=== PATIENT | female | born 1950 | race Caucasian/White ===

== ENCOUNTER → 2017-12-17 08:07 | Outpatient (CLI) | payer MEDICARE, OTHER, SELFPAY ==
[2017-12-17 10:56] LABS: Vitamin D,25 Hydroxy 37.4 ng/mL (29.95-100.01)
[2017-12-17 10:58] LABS: Anion Gap 6 (5-15); BUN 18 mg/dL (7-18); BUN/Creat Ratio 17.6 RATIO (10-20); Calcium,Total 8.9 mg/dL (8.5-10.1); Chloride 105 mmol/L (98-107); Cholesterol 169 mg/dL (200); Creatinine, Serum 1.02 mg/dL (0.55-1.02); EST Glomerular Filtration Rate 58 mL/min (>60); Est Glom Filt Rate - Afr Amer 70 mL/min (>60); Glucose 85 mg/dL (74-106); High Density Lipoprotein 42 mg/dL; Potassium 3.9 mmol/L (3.5-5.1); Sodium Level 139 mmol/L (136-145); Triglycerides 118 mg/dL; Very Low Density Lipoprotein 24 mg/dL (5-40)
== END ==
PROVIDERS: Family Provider Family Medicine; PCP Family Medicine; Visit Provider Family Medicine
DX: Z00.00 Encounter for general adult medical examination without abnormal findings (principal); E55.9 Vitamin D deficiency, unspecified; E78.5 Hyperlipidemia, unspecified
CPT/HCPCS: 36415; 80048; 80061; 82306

== ENCOUNTER → 2017-12-21 12:41 | Outpatient (CLI) | payer MEDICARE, OTHER, SELFPAY ==
--- NOTE | 2017-12-21 12:48 | BD_ITS ---
STUDY: DUAL ENERGY X-RAY ABSORPTIOMETRY / DXA REASON FOR EXAM: Female, 67 years old. Postmenopausal female. Patient on calcium and multivitamins. Family history of osteoporosis. TECHNIQUE: Bone Mineral Density (BMD) measurements of lumbar spine and bilateral hips were obtained. COMPARISON: None. FINDINGS: Lumbar Spine (L1-L4): g/cm2 (1.121) / T-score (-0.7) / Z-score (0.9) Findings are suggestive of normal bone density with a low fracture risk. Left Femur Total: g/cm2 (1.060) / T-score (0.4) / Z-score (1.6) Left Femoral Neck: g/cm2 (0.980) / T-score (-0.4) / Z-score (1.0) Right Femur Total: g/cm2 (1.039) / T-score (0.2) / Z-score (1.4) Right Femoral Neck: g/cm2 (0.944) / T-score (-0.7) / Z-score (0.8) BD/Dexa Bone Density Study IMPRESSION: The patient is considered normal as outlined below according to World Ronald Organization (WHO) criteria with a low fracture risk. Reference Information: The T-score is the number of standard deviations above or below the standard which is normal for young adults at their peak bone mineral density. The World Health Organization (WHO) interprets the T-scores as follows: Above -1 Normal bone density Between -1 and -2.5 Osteopenia Equal to / or below -2.5 Osteoporosis As a practical clinical guideline, osteopenia may be graded as follows: Mild -1 through -1.5 Moderate -1.6 through -2.0 Severe -2.1 through -2.4 The Z-score is the number of standard deviations above or below age-matched controls. A Z-score of less than -1.5 would be considered abnormal. References: 1. NIH Osteoporosis and Related Bone Diseases http://www.osteo.org 2. International Society for Clinical Densitometry http://www.iscd.org 3. National Osteoporosis Foundation http://www.nof.org Electronically Signed: Supa Ibarra DO at 8:37 EDT Tel [phone], Service support ,
== END ==
PROVIDERS: Family Provider Family Medicine; PCP Family Medicine; Visit Provider Family Medicine
DX: Z00.00 Encounter for general adult medical examination without abnormal findings (principal)
CPT/HCPCS: 77080

== ENCOUNTER → 2018-05-18 10:39 | Outpatient (CLI) | payer MEDICARE, OTHER, SELFPAY ==
[2018-05-18 12:30] LABS: Anion Gap 6 (5-15); BUN 17 mg/dL (7-18); BUN/Creat Ratio 14.9 RATIO (10-20); Calcium,Total 9.1 mg/dL (8.5-10.1); Chloride 100 mmol/L (98-107); Creatinine, Serum 1.14 mg/dL (0.55-1.02); EST Glomerular Filtration Rate 51 mL/min (>60); Est Glom Filt Rate - Afr Amer 61 mL/min (>60); Glucose 104 mg/dL (74-106); Potassium 3.8 mmol/L (3.5-5.1); Sodium Level 135 mmol/L (136-145)
== END ==
PROVIDERS: Family Provider Family Medicine; PCP Family Medicine; Visit Provider Family Medicine
DX: I10 Essential (primary) hypertension (principal)
CPT/HCPCS: 36415; 80048

== ENCOUNTER → 2019-01-24 09:49 | Outpatient (CLI) | payer MEDICARE, OTHER, SELFPAY ==
[2019-01-24 12:41] LABS: Anion Gap 7 (5-15); BUN 29 mg/dL (7-18); Calcium,Total 9.3 mg/dL (8.5-10.1); Chloride 104 mmol/L (98-107); Cholesterol 177 mg/dL (200); Creatinine, Serum 1.26 mg/dL (0.55-1.02); EST Glomerular Filtration Rate 45 mL/min (>60); Est Glom Filt Rate - Afr Amer 55 mL/min (>60); Glucose 92 mg/dL (74-106); High Density Lipoprotein 48 mg/dL; Potassium 4.3 mmol/L (3.5-5.1); Sodium Level 138 mmol/L (136-145); Triglycerides 98 mg/dL; Very Low Density Lipoprotein 20 mg/dL (5-40)
== END ==
PROVIDERS: Family Provider Family Medicine; PCP Family Medicine; Referring Provider Family Medicine; Visit Provider Family Medicine
DX: I10 Essential (primary) hypertension (principal)
CPT/HCPCS: 36415; 80048; 80061

== ENCOUNTER 2019-02-13 08:42 | Day surgery (SDC) | payer MEDICARE, OTHER, SELFPAY ==
[2019-01-30 13:27] VITALS: BMI 31.9
--- NOTE | 2019-01-31 11:21 | HP_ITS ---
Intake Vital Signs 01/30/19 Height 5 ft 4 in 01/30/19 Weight: 186 lb 01/30/19 Body Mass Index (BMI) 31.9 01/30/19 Blood Pressure 124/79 H 01/30/19 Blood Pressure Location Rt brachial 01/30/19 Blood Pressure Position Sitting 01/30/19 Respiratory Rate 18 Intake Visit Reasons: Dysphagia & Garcia Upper Scope Suggestion Clerk Required: No Is patient in pain?: No Allergies No Known Allergies Allergy (Unverified 01/30/19 13:27) Medications aspirin 81 mg tablet,delayed release 81 mg PO DAILY 01/30/19 [History Confirmed 01/30/19] bupropion HCl SR 150 mg tablet,12 hr sustained-release 150 mg PO BID 01/30/19 [History Confirmed 01/30/19] calcium acetate 667 mg capsule 667 mg PO TID cap 01/30/19 [History Confirmed 01/30/19] citalopram 40 mg tablet 20 mg PO DAILY 01/30/19 [History Confirmed 01/30/19] enalapril 5 mg-hydrochlorothiazide 12.5 mg tablet 1 tab PO DAILY 01/30/19 [History Confirmed 01/30/19] fluticasone propionate 50 mcg/actuation nasal spray,suspension 1 spray INTRANASAL DAILY 01/30/19 [History Confirmed 01/30/19] magnesium oxide 500 mg capsule 500 mg PO BID cap 01/30/19 [History Confirmed 01/30/19] meclizine 25 mg tablet 25 mg PO DAILY PRN 01/30/19 [History Confirmed 01/30/19] ropinirole 0.5 mg tablet 0.5 mg PO QHS 01/30/19 [History Confirmed 01/30/19] simvastatin 10 mg tablet 10 mg PO QHS 01/30/19 [History Confirmed 01/30/19] PFS Medical History Depression (Acute) GERD (gastroesophageal reflux disease) (Acute) High cholesterol (Acute) Restless leg (Acute) HTN (hypertension) (Chronic) Surgical History S/P tubal ligation (Acute) Family History Sister Colon cancer Father Colon cancer Mother Hypertension Social History Smoking Status: Never smoker alcohol intake: never HPI HPI HPI: XENIA CHAU, is a 68 F who presents to the office today for HPI HPI Surgical H&P: Yes HPI: XENIA CHAU, is a 68 F who presents to the office today for evaluation for endoscopy. Patient had an EGD done in 2002 she has a history of Garcia's esophagus. She is noticed that over the last 2 weeks she has had some severe heartburn with water brash symptoms. It seemed to hurt all the time. She was recently changed to omeprazole 40 mg 2 times a day in the morning and Zantac 150 mg at nighttime. She is slowly starting to notice her symptoms get better. Her last colonoscopy was in 2007 and she has a history of polyps with that she had a tubular adenoma removed from the hepatic flexure. She has not had any further colonoscopies since then. She has not noticed any change in her bowel habits she has not noticed any blood in her weight is stable ROS General General: Yes fatigue; no weight change, appetite, colon cancer, breast cancer or weakness HEENT HEENT: Yes difficulty swallowing; no eye injury, eye surgery, swollen glands or hoarseness Endo Endocrine: No thyroid disease, diabetes mellitus, thyroid cancer, Hair loss, heat intolerance or cold intolerance Skin Skin: No rash or changing moles Breast Breast: No left breast lump, right breast lump, nipple discharge, breast pain, abnormal mammogram, abnormal US or breast enlargement Musc Musculoskeletal: No back problems, arthritis, rheumatoid arthritis, gout or joint pain Cardio Cardiovascular: Yes high blood pressure; no murmur, pacemaker, heart disease, atrial fibrillation, heart attack, heart stent, palpitations, shortness of breat with exertion or chest pain Psych Psychiatric: Yes depression and anxiety; no hearing voices Resp Respiratory: No shortness of breath, Yes sleep apnea, No cough, No COPD, No asthma, No emphysema, No wheezing Gastro Gastrointestinal: Yes abdominal pain, No nausea or vomiting, No diarrhea, No constipation, No blood in stool, Yes acid reflux, No hemorrhoids, No ulcers, No gallbladder problem, No black,tarry stools Leopoldo Hematologic: No blood thinners, No blood disorders, No bleeding, No anemia, No blood clots Neuro Neurologic: No system reviewed and no additional complaints, except as docu, No as per HPI, No abnormal walking, No abnormal hearing, No abnormal movements, No abnormal speech, No behavioral changes, No burning sensations, No confusion, No seizure-like activity, No unsteadiness, No dizziness, No localized weakness, No frequent falls, No headache(s), No lack of coordination, No loss of vision, No memory loss, No numbness, No other visual disturbances, No radiating pain, No restless legs, No sensory deficit, No fainting, No tingling, No tremor(s), No weakness, No other Exam Const General: no acute distress, well developed, well hydrated Orientation: oriented to person, oriented to place, oriented to time [facility] Head: normocephalic, atraumatic Ears: external ears normal Mouth: moist mucous membranes Eyes Sclera: sclerae normal Pupils: normal by confrontation Neck Neck: no lymphadenopathy noted Neck mass: No Thyroid: thyroid normal, symmetrical Chest Chest palpation & inspection: normal inspection of the chest Breast Palpation: No nipple discharge Resp Effort & Inspection: normal respiratory effort Auscultation: clear to auscultation bilaterally Percussion: percussion normal Cardio Rate: regular rate Rhythm: regular rhythm Heart Sounds: no murmurs GI Palpation: soft, no hepatosplenomegaly, no masses, nontender Rectal Exam: other Other: Rectal exam deferred. Extrem General: normal to inspection, no clubbing, cyanosis or edema Assessment & Plan Problems 1. Heart burn R12 2. Gastroesophageal reflux disease, esophagitis presence not specified K21.9 3. Personal history of colonic polyps Z86.010 Plan I have discussed the above with the patient. I have offered the patient colonoscopy as well as an esophagogastroduodenoscopy for evaluation. I have explained the risks/benefits of the procedure and described the procedure. I have discussed the risks with the patient, including but not limited to: infection, bleeding, perforation of the GI tract requiring emergency surgery, inability to complete the procedure, injury to any internal organs, complications of anesthesia, etc. - the patient understands and agrees to proceed. I have answered all the patient's questions to the patient's satisfaction and the patient has no further questions. The patient has been given instructions for the colon cleansing preparation. Coding Level of Care Code Off vis,new,level 3 Diagnoses Heart burn R12 Gastroesophageal reflux disease, esophagitis presence not specified K21.9 ??Esophagitis presence: esophagitis presence not specified Personal history of colonic polyps Z86.010 01/31/19 1121 <Electronically signed by Rivera smith MD> Date _ Rivera Roth MD I have re-examined the patient. There are no clinical changes since date of exam.
[2019-02-13] VITALS (7 sets, daily range): BP systolic 103–122; BP diastolic 64–83; PULSE 77–87; RESP 16–18; TEMP 36.1–36.9; O2SAT 91–99; BMI 34.0
--- NOTE | 2019-02-13 | IMM_PTH ---
PATIENT: XENIA CHAU LOC: EN U#:[id number] AGE/SX: 68/F ROOM: RE02/13/[address]: Dr. Rivera Roth MD : 1950 BED: DIS: 02/13/2019 SPEC #: [id number] RECD: 02/13/19 13:46 STATUS: ALEJANDRINA REQ #: [id number] PRESTON: 02/13/19 00:[address]: Rivera Roth DEPT: IMMUNOHISTOCHEMISTRY RECD BY: Humberto Stevens ENTERED: 02/13/19 13:46 SP TYPE: IMMUNO OTHR DR: Dr. Romain Jessica MD Tissues: Gastric mucous membrane Procedures: H Pylori (initial) PHYSICIAN & INSTITUTION [place] [id number] SPECIMEN INFORMATION: Tissue Source: Antral biopsy Clinical Info: Dysphagia, Garcia's Specimen Number: [id number] CPT code: 26197 METHODOLOGY: Deparaffinized sections of prefer/formalin-fixed tissue or PAP/DQ stained slides are incubated with monoclonal/polyclonal antibodies/oligonucleotide probes. Localization is made via biotin free immunoperoxidase method. Appropriate controls are performed and reacted as expected. Results on target cell population are indicated in the following table: RESULTS: ANTIBODY / CLONE RESULT H Pylori (polyclonal) negative These tests were developed and their performance characteristics determined by [facility]. They may not have been cleared or approved by the U.S. Food and Drug Administration. The FDA has determined that such clearance or approval is not necessary. INTERPRETATION: Antral biopsy: Negative for Helicobacter pylori organisms. CE:barry 02/14/19
--- NOTE | 2019-02-13 09:45 | EGD_PTH ---
PATIENT: XENIA CHAU LOC: EN U#:[id number] AGE/SX: 68/F ROOM: RE02/13/[address]: Dr. Rivrea Roth MD : 1950 BED: DIS: 02/13/2019 SPEC #: [id number] RECD: 02/13/19 11:17 STATUS: ALEJANDRINA REStephan #: [id number] PRESTON: 02/13/19 09:[address]: Rivera Roth DEPT: SURGICAL PATHOLOGY RECD BY: Anthony Puentes ENTERED: 02/13/19 11:34 SP TYPE: EGD BIOPSY OTHR DR: Dr. Romain Jessica MD Tissues: A - Gastric mucous membrane B - Gastric mucous membrane Procedures: Surgery Specimen Level IV HEADER OPERATION: Colonoscopy, EGD ([facility] [place]) PRE-OP DIAGNOSIS: Dysphagia, Garcia's TISSUE SUBMITTED: A. Gastric polyp, B. Antral biopsy and H. pylori MICROSCOPIC DIAGNOSIS A. Gastric polyp: Gastric fundic gland polyp. B. Antral biopsy: Mild chronic antral gastritis. See comment. CE:barry 02/14/19 COMMENT B. The results of immunohistochemistry for Helicobacter pylori will be reported separately ([id number]). MICROSCOPIC DESCRIPTION Slides are reviewed. GROSS DESCRIPTION A - Received in fixative is one container labeled with the patient's name and designated gastric polyp. The specimen consists of a single pink-day polypoid tissue fragment measuring 3 mm in greatest dimension. The specimen is totally submitted in one cassette. B - Received in fixative is one container labeled with the patient's name and designated antral biopsy and H. pylori. The specimen consists of a single pink-day biopsy fragment measuring 2 mm in greatest dimension. The specimen is totally submitted in one cassette. / FA:barry 02/13/19 TC:1 CPT: 36718 x2
--- NOTE | 2019-02-13 10:02 | OP.ENDO_ITS ---
02/13/2019 Romain Jessica MD [address] [id number] Re : Upper GI endoscopy procedure for Cat Resendizn Dear Dr. Jessica This procedure was performed on Wednesday, February 13, 2019. My impressions and recommendations are as follows: Impressions : - Normal esophagus. - Z-line regular, 39 cm from the incisors. No specimens collected. - Erythematous mucosa in the greater curvature. Biopsied. - A few gastric polyps. Resected and retrieved. - Normal examined duodenum. No specimens collected. Recommendations : - Discharge patient to home. - Resume previous diet. - Continue present medications. - Await pathology results. - Repeat upper endoscopy (date not yet determined) for surveillance based on pathology results. - Return to my office in 1 week. My findings are described in the full procedure note, which is enclosed. If I can be of further assistance, please feel free to contact me at Doctor phone number(s): , Fax: [phone], Work: . Sincerely, MD Rivera Medel MD 02/13/2019 10:01:30 AM This report has been signed electronically.
--- NOTE | 2019-02-13 10:04 | OP.ENDO_ITS ---
02/13/2019 Romain Jessica MD [address] [place] [address] Re : Colonoscopy procedure for Cat Harden Dear Dr. Jessica This procedure was performed on Wednesday, February 13, 2019. My impressions and recommendations are as follows: Impressions : - Diverticulosis in the sigmoid colon and in the descending colon. No specimens collected. - Non-bleeding internal hemorrhoids. - The examination was otherwise normal. Recommendations : - Discharge patient to home. - Resume previous diet. - Continue present medications. - Repeat colonoscopy in 10 years for screening purposes. - Return to my office in 1 week. My findings are described in the full procedure note, which is enclosed. If I can be of further assistance, please feel free to contact me at Doctor phone number(s): , Fax: [phone], Work: . Sincerely, MD Rivera Medel MD 02/13/2019 10:04:04 AM This report has been signed electronically.
== END 2019-02-13 10:57 | disposition home or self-care (01) ==
LOC: EN 08:43 → AC 08:44
PROVIDERS: Family Provider Family Medicine; PCP Family Medicine; Referring Provider Family Medicine; Visit Provider Surgery
PROC: 0DJD8ZZ Inspection of Lower Intestinal Tract, Via Natural or Artificial Opening Endoscopic (ICD-10-PCS; CPT 45378; principal; 2019-02-13 09:40)
DX: K31.7 Polyp of stomach and duodenum (principal); K29.50 Unspecified chronic gastritis without bleeding; K21.9 Gastro-esophageal reflux disease without esophagitis; K64.8 Other hemorrhoids; K57.30 Diverticulosis of large intestine without perforation or abscess without bleeding; Z86.010 Personal history of colon polyps; E78.00 Pure hypercholesterolemia, unspecified; F32.9 Major depressive disorder, single episode, unspecified; I10 Essential (primary) hypertension; G47.30 Sleep apnea, unspecified; G25.81 Restless legs syndrome; Z79.82 Long term (current) use of aspirin; Z79.899 Other long term (current) drug therapy; Z87.19 Personal history of other diseases of the digestive system; Z80.0 Family history of malignant neoplasm of digestive organs
CPT/HCPCS: 43239; G0105; 88305; 88342; J7120

== ENCOUNTER → 2019-06-21 09:29 | Outpatient (CLI) | payer MEDICARE, OTHER, SELFPAY ==
[2019-02-13 09:15] VITALS: BMI 34.0
[2019-06-21 12:40] LABS: Anion Gap 6 (5-15); BUN 21 mg/dL (7-18); BUN/Creat Ratio 17.1 RATIO (10-20); Calcium,Total 9.2 mg/dL (8.5-10.1); Chloride 103 mmol/L (98-107); Cholesterol 173 mg/dL (200); Creatinine, Serum 1.23 mg/dL (0.55-1.02); EST Glomerular Filtration Rate 46 mL/min (>60); Est Glom Filt Rate - Afr Amer 56 mL/min (>60); Glucose 91 mg/dL (74-106); High Density Lipoprotein 51 mg/dL; Sodium Level 140 mmol/L (136-145); Triglycerides 71 mg/dL; Very Low Density Lipoprotein 14 mg/dL (5-40)
== END ==
PROVIDERS: Family Provider Family Medicine; PCP Family Medicine; Visit Provider Family Medicine
DX: I10 Essential (primary) hypertension (principal)
CPT/HCPCS: 36415; 80048; 80061

== ENCOUNTER → 2020-01-10 08:36 | Outpatient (CLI) | payer MEDICARE, OTHER, SELFPAY ==
[2019-02-13 09:15] VITALS: BMI 34.0
[2020-01-10 10:48] LABS: Anion Gap 5 (5-15); BUN 23 mg/dL (7-18); BUN/Creat Ratio 19.5 RATIO (10-20); Chloride 103 mmol/L (98-107); Cholesterol 191 mg/dL (200); Creatinine, Serum 1.18 mg/dL (0.55-1.02); EST Glomerular Filtration Rate 49 mL/min (>60); Est Glom Filt Rate - Afr Amer 59 mL/min (>60); Glucose 95 mg/dL (74-106); High Density Lipoprotein 53 mg/dL; Sodium Level 138 mmol/L (136-145); Triglycerides 86 mg/dL; Very Low Density Lipoprotein 17 mg/dL (5-40)
[2020-01-10 10:52] LABS: Vitamin D,25 Hydroxy 45.1 ng/mL
== END ==
PROVIDERS: PCP Family Medicine; Referring Provider Family Medicine; Visit Provider Family Medicine
DX: I10 Essential (primary) hypertension (principal); E55.9 Vitamin D deficiency, unspecified
CPT/HCPCS: 36415; 80048; 80061; 82306

== ENCOUNTER → 2020-02-07 09:27 | Outpatient (CLI) | payer MEDICARE, OTHER, SELFPAY ==
[2019-02-13 09:15] VITALS: BMI 34.0
--- NOTE | 2020-02-07 09:33 | BD_ITS ---
STUDY: DUAL ENERGY X-RAY ABSORPTIOMETRY / DXA REASON FOR EXAM: Female, 69 years old. 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 COMPARISON: Comparison is made with prior study dated December 21, 2017. FINDINGS: Lumbar Spine (L1-L4): g/cm2 (0.997) / T-score (-1.7) / Z-score (0.1) Findings are suggestive of osteopenia with a moderate fracture risk. Left Femur Total: g/cm2 (1.037) / T-score (0.2) / Z-score (1.5) Left Femoral Neck: g/cm2 (1.004) / T-score (-0.2) / Z-score (1.3) Right Femur Total: g/cm2 (1.049) / T-score (0.3) / Z-score (1.6) Right Femoral Neck: g/cm2 (0.896) / T-score (-1.0) / Z-score (0.5) The T-Scores on the most recent prior examination were: Lumbar Spine (L1-L4): There has been worsening of bone density since the previous examination. Left Femur Total: which represents a worsening of 2.2%. Right Femur Total: which represents an improvement of 1%. BD/Dexa Bone Density Study IMPRESSION: The patient is considered osteopenic as outlined below according to World Ronald Organization (WHO) criteria with a moderate fracture risk. There has been worsening of bone density since the previous examination. Reference Information: The T-score is the number of standard deviations above or below the standard which is normal for young adults at their peak bone mineral density. The World Health Organization (WHO) interprets the T-scores as follows: Above -1 Normal bone density Between -1 and -2.5 Osteopenia Equal to / or below -2.5 Osteoporosis As a practical clinical guideline, osteopenia may be graded as follows: Mild -1 through -1.5 Moderate -1.6 through -2.0 Severe -2.1 through -2.4 The Z-score is the number of standard deviations above or below age-matched controls. A Z-score of less than -1.5 would be considered abnormal. References: 1. NIH Osteoporosis and Related Bone Diseases http://www.osteo.org 2. International Society for Clinical Densitometry http://www.iscd.org 3. National Osteoporosis Foundation http://www.nof.org Electronically Signed: Tomy Mera, at 13:28 EDT , Service support ,
== END ==
PROVIDERS: PCP Family Medicine; Referring Provider Family Medicine; Visit Provider Family Medicine
DX: Z00.00 Encounter for general adult medical examination without abnormal findings (principal); Z78.0 Asymptomatic menopausal state
CPT/HCPCS: 77080

== ENCOUNTER → 2020-02-20 12:11 | Outpatient (CLI) | payer MEDICARE, OTHER, SELFPAY ==
[2019-02-13 09:15] VITALS: BMI 34.0
--- NOTE | 2020-02-20 12:14 | RAD_ITS ---
STUDY: X-RAY - RIGHT KNEE REASON FOR EXAM: Female, 69 years old. right knee pain TECHNIQUE: 4 view(s) of the knee. COMPARISON: None. FINDINGS: Normal visualized distal femur. Normal visualized proximal tibia and fibula. Normal proximal tibiofibular articulation. There is mild degenerative arthrosis of the medial femorotibial compartment. Normal lateral femorotibial compartment. Normal patellofemoral articulation. The soft tissue structures are unremarkable. RAD/Knee 4 or More Views IMPRESSION: Mild medial compartment osteoarthritis. Electronically Signed: Josias Gupta MD at 13:08 EDT Tel , Service support ,
== END ==
PROVIDERS: PCP Family Medicine; Referring Provider Family Medicine; Visit Provider Family Medicine
DX: M17.11 Unilateral primary osteoarthritis, right knee (principal)
CPT/HCPCS: 73564

== ENCOUNTER 2020-03-21 10:30 | Outpatient (RCR) | payer MEDICARE, OTHER, SELFPAY ==
[2019-02-13 09:15] VITALS: BMI 34.0
--- NOTE | 2020-03-07 09:22 | HP.PTEVAL_ITS ---
Patient's Visit Information XENIA CHAU is a 69 year old F referred to Physical Therapy by LAURIE JO with a diagnosis of R knee pain. Date of Evaluation: 03/07/20 Physical Therapist: Omar Stone DPT - Visit Plan Frequency: 1x/Week Duration: 4-6 Weeks Plan: Start with [place] quad, HS, glute and core strengthening exercises. Progress as tolerated with new HEP weekly. Pt. to complete HEP in between sessions. May use US if needed, but if not painful do not use. - Subjective Pt. is here today for her initial evaluation with diagnosis of R knee pain. Pt. reports having incraeased R knee pain for some time. Pt. reports having medial k nee pain with walking, squating, and stairs. Pt. reports decreased symptoms with resting in sitting. Pt. typically does not have any pain with sleeping, but will occassiioonally wake her up. Pt. denies N/T in either LE. Pt. is very active, but feels limited with her ability due to recent increase in her knee pain. She has recently started wearing a copper brace on her knee with good pain reduction with all of her walking and household work. Pt. is hopeful to increase her strength and reduce her knee pain allowing for increased tolerance to all recreational activities. - Pain R knee Pain Intensity (Out of 10): 2 Pain Intensity Range: 0, 4 - Objective POSTURE: Pt. has decent posture in stance. Pt. has slight R hip ER and slight valgus postioning, but minimall on R side. PALPATION: Pt. has some mild tenderness at medial joint line of R knee, slight tenderness at pes anserine region as well. No lateral joint line pain, no popliteal pain. NEURO: normal sensation, normal DTR bilaterally. ROM: L knee- 0-0-129deg. R knee 0-0-125deg. Mild increase in symptoms and TKE and end range knee flexion. MMT: LLE- ankle 5/5 throughout; knee- ext 5-/5, flexion 5-/5; hip- flexion 5-/5, abd 4+/5, ext 4+/5. RLE- ankle 5/5 throughout; knee- ext 4+/5 mild increase nW, fleixon 4+/5 mild increase NW; hip- flexon 4+/5, abd 4/5, ext 4/5.. GAIT: Pt. ambulates without AD with decent pattern, but does have slight antalgic pattenr during R stance phase with increased R hip lateral translation during R stance phase. STAIRS: minimal pain with ascending, increased medial knee pain with decending, reciprocal pattern with use of 1 HR. - Goals Goal 1:: LTG: Pt. to be I with HEP. Goal Time Frame: 4-6 Weeks Goal 2:: LTG: Pt. to have increased RLE strength by 1/2 grade throughout RLE. Goal Time Frame: 4-6 Weeks Goal 3:: STG: Pt. to sleep throughout the night without increase in symptoms. Goal Time Frame: 2-4 Weeks Goal 4:: LTG: Pt. to complete all ADLs and recreational activities without increase in symptoms. Goal Time Frame: 4-6 Weeks Goal 5:: LTG: Pt. to have full R knee ROM without increase in symptoms. - Rehabilitation Potential Physical Therapy Diagnosis: Pt. has signs and symptoms consistent with R knee pa in, mostly like OA of medial compartment. Pt. has decnet ROM, but has pain at her end ranges of motions. Pt. would benefit from strengthening in pain free ranges to stabilize around her knee including quad, HS and hip strengthening. Rehabilitation Potential: Excellent - Anticipated Interventions Patient/Client Instruction: Educate patient on: Condition, Plan of Care, Risk Factors, Benefits of Fitness Program For the Purpose of:: To improve decision making, To facilitate caregiver knowledge, To improve self management, To prevent re-injury, To improve ability to perform tasks related to life management, To improve tolerance to ADL's Therapeutic Exercise to Include: Strength training, Power training, Endurance training, Postural training, Flexibilty training, Gait and locomotor training, Passive ROM, Active ROM For the Purpose of:: To decrease pain, To increase ROM, To improve nutrient delivery to tissue, To improve ability of physical actions for home/community/work/leisure, To improve gait and locomotor functions, To improve health of tissue, To decrease soft tissue restriction, To increase flexibility/ROM Ultrasound (thermal/non thermal): Yes For the Purpose of:: To decrease pain, To decrease swelling/inflammation, To increase ROM, To improve nutrient delivery to tissue, To increase oxygenation perfusion, To improve muscle performance and motor function Thank you for the opportunity to evaluate your patient. For Medicare and Medicare HMO plans, please review the plan of care and approve it. It will need to be FAXED BACK to us at [phone] for Medicare purposes. For Medicare only, by signing this I certify the plan of care. Please let me know if there are questions or concerns regarding this plan of care. Physician Signature: Date:
== END 2020-03-21 19:00 | disposition home or self-care (01) ==
LOC: PT 10:30
PROVIDERS: PCP Family Medicine; Referring Provider Family Medicine; Visit Provider Family Medicine
DX: M25.569 Pain in unspecified knee (principal)
CPT/HCPCS: 97110; 97161

== ENCOUNTER → 2020-05-13 10:26 | Outpatient (CLI) | payer MEDICARE, OTHER, SELFPAY ==
[2019-02-13 09:15] VITALS: BMI 34.0
--- NOTE | 2020-05-13 10:29 | BI_ITS ---
MAMMOGRAPHY - BILATERAL SCREENING REASON FOR EXAM: Female, 69 years old. Routine annual screening examination. PERTINENT HISTORY: Non-contributory. TECHNIQUE: Digital bilateral breast georgina (3D mammographic acquisition) in the CC and MLO projections. 2-D mediolateral oblique (MLO) and craniocaudad (CC) views of both breasts were obtained. CAD: Full Field Digital Mammography with Computer Added Detection was performed. COMPARISON: Comparison is made with prior examination dated 05/08/2019. FINDINGS: Breast Composition: There are scattered areas of fibroglandular density. There are no dominant masses or suspicious calcifications. Stable small benign appearing bilateral axillary lymph nodes. No other significant abnormalities are identified. There has been no significant change since the prior study. BI/SCREEN MAMM (CAD) W/GEORGINA BILAT IMPRESSION: Stable bilateral screening mammogram. Yearly follow-up mammogram recommended. (A) ASSESSMENT CATEGORY: BIRADS Category 2: Benign. A letter regarding these results will be sent to the patient by the facility within 30 days. Approximately 10% of breast cancers are not detected by mammography. A normal mammogram should not delay biopsy of a clinically suspicious abnormality. [id number] Electronically Signed: Tomy Mera, at 12:36 EDT , Service support ,
== END ==
PROVIDERS: PCP Family Medicine; Referring Provider Family Medicine; Visit Provider Family Medicine
DX: Z12.31 Encounter for screening mammogram for malignant neoplasm of breast (principal)
CPT/HCPCS: 77063; 77067

== ENCOUNTER → 2020-12-03 10:12 | Outpatient (CLI) | payer MEDICARE, OTHER, SELFPAY ==
[2019-02-13 09:15] VITALS: BMI 34.0
[2020-12-03 12:59] LABS: Anion Gap 6 (5-15); BUN 25 mg/dL (7-18); BUN/Creat Ratio 19.2 RATIO (10-20); Calcium,Total 9.3 mg/dL (8.5-10.1); Chloride 105 mmol/L (98-107); Cholesterol 171 mg/dL (200); EST Glomerular Filtration Rate 43 mL/min (>60); Est Glom Filt Rate - Afr Amer 52 mL/min (>60); Glucose 92 mg/dL (74-106); High Density Lipoprotein 47 mg/dL; Sodium Level 137 mmol/L (136-145); Triglycerides 94 mg/dL; Very Low Density Lipoprotein 19 mg/dL (5-40)
== END ==
PROVIDERS: PCP Family Medicine; Referring Provider Family Medicine; Visit Provider Family Medicine
DX: I10 Essential (primary) hypertension (principal)
CPT/HCPCS: 36415; 80048; 80061

== ENCOUNTER → 2021-07-03 08:35 | Outpatient (CLI) | payer MEDICARE, OTHER, SELFPAY ==
[2021-07-03 10:15] LABS: Absolute Lymphocyte Count 1.67 X10^3/uL (0.83-4.51); Absolute Neutrophil Count 3.9 X10^3/uL (2.0-7.7); Basophil# 0.04 X10^3/uL; Basophil% 0.6 % (0-1); Eosinophil# 0.14 X10^3/uL; Eosinophils% 2.2 % (0-5); Hematocrit 39.7 % (37-47); Hemoglobin 12.6 g/dL (12.0-15.0); Lymphocyte # 1.67 X10^3/ul (0.83-4.51); Lymphocyte % 26.7 % (19-41); Mean Corp Hgb Conc 31.7 g/dL (32-36); Mean Corpuscular Hgb 26.9 pg (27.0-32.0); Mean Corpuscular Volume 84.6 fL (81-99); Mean Platelet Vol. 9.7 fl (6.2-12.0); Monocyte# 0.48 X10^3/uL; Monocyte% 7.7 % (0-10); NRBC Flagged by Analyzer 0 % (0-5); Neutrophil % 62.5 % (47-70); Platelet Count 286 K/mm3 (150-450); RBC Distribution Width CV 13.5 % (11.6-14.6); RBC Distribution Width SD 41.9 fl (35.1-43.9); Red Blood Count 4.69 M/mm3 (4.2-5.4); White Blood Count 6.3 K/mm3 (4.4-11.0)
[2021-07-03 11:02] LABS: Anion Gap 7 (5-15); BUN 32 mg/dL (7-18); BUN/Creat Ratio 22.4 RATIO (10-20); Calcium,Total 9.2 mg/dL (8.5-10.1); Chloride 103 mmol/L (98-107); Cholesterol 158 mg/dL (200); Creatinine, Serum 1.43 mg/dL (0.55-1.02); EST Glomerular Filtration Rate 39 mL/min (>60); Est Glom Filt Rate - Afr Amer 47 mL/min (>60); Glucose 100 mg/dL (74-106); High Density Lipoprotein 39 mg/dL; Sodium Level 138 mmol/L (136-145); Triglycerides 98 mg/dL; Very Low Density Lipoprotein 20 mg/dL (5-40)
== END ==
PROVIDERS: PCP Family Medicine; Referring Provider Family Medicine; Visit Provider Family Medicine
DX: I10 Essential (primary) hypertension (principal); R53.83 Other fatigue
CPT/HCPCS: 36415; 80048; 80061; 85025

== ENCOUNTER → 2021-12-23 | Outpatient (CLI) | payer MEDICARE, OTHER, SELFPAY ==
[2021-12-23 10:59] LABS: Anion Gap 6 (5-15); BUN 23 mg/dL (7-18); BUN/Creat Ratio 16.8 RATIO (10-20); Calcium,Total 9.4 mg/dL (8.5-10.1); Chloride 104 mmol/L (98-107); Cholesterol 186 mg/dL (200); Creatinine, Serum 1.37 mg/dL (0.55-1.02); EST Glomerular Filtration Rate 41 mL/min (>60); Est Glom Filt Rate - Afr Amer 49 mL/min (>60); Glucose 92 mg/dL (74-106); High Density Lipoprotein 46 mg/dL; Potassium 4.1 mmol/L (3.5-5.1); Sodium Level 139 mmol/L (136-145); Triglycerides 110 mg/dL; Very Low Density Lipoprotein 22 mg/dL (5-40)
== END | disposition home or self-care (01) ==
LOC: MFPLAB 09:18
PROVIDERS: PCP Family Medicine; Referring Provider Family Medicine; Visit Provider Family Medicine
DX: I10 Essential (primary) hypertension (principal)
CPT/HCPCS: 36415; 80048; 80061

== ENCOUNTER → 2022-06-18 | Outpatient (CLI) | payer MEDICARE, OTHER, SELFPAY ==
[2022-06-18 17:59] LABS: Absolute Lymphocyte Count 1.84 X10^3/uL (0.83-4.51); Absolute Neutrophil Count 3.7 X10^3/uL (2.0-7.7); Basophil# 0.06 X10^3/uL; Eosinophil# 0.11 X10^3/uL; Eosinophils% 1.8 % (0-5); Hemoglobin 12.8 g/dL (12.0-15.0); Lymphocyte # 1.84 X10^3/ul (0.83-4.51); Lymphocyte % 29.3 % (19-41); Mean Corpuscular Hgb 27.3 pg (27.0-32.0); Mean Corpuscular Volume 85.3 fL (81-99); Mean Platelet Vol. 9.6 fl (6.2-12.0); Monocyte# 0.57 X10^3/uL; Monocyte% 9.1 % (0-10); NRBC Flagged by Analyzer 0 % (0-5); Neutrophil # 3.68 X10^3/uL (2.7-7.7); Neutrophil % 58.5 % (47-70); Platelet Count 293 K/mm3 (150-450); RBC Distribution Width CV 13.9 % (11.6-14.6); RBC Distribution Width SD 43.2 fl (35.1-43.9); Red Blood Count 4.69 M/mm3 (4.2-5.4); White Blood Count 6.3 K/mm3 (4.4-11.0)
[2022-06-18 18:33] LABS: Anion Gap 6 (5-15); BUN 27 mg/dL (7-18); BUN/Creat Ratio 18.8 RATIO (10-20); Calcium,Total 9.6 mg/dL (8.5-10.1); Chloride 103 mmol/L (98-107); Creatinine, Serum 1.44 mg/dL (0.55-1.02); EST Glomerular Filtration Rate 38 mL/min (>60); Est Glom Filt Rate - Afr Amer 46 mL/min (>60); Glucose 85 mg/dL (74-106); Potassium 3.9 mmol/L (3.5-5.1); Sodium Level 136 mmol/L (136-145)
== END | disposition home or self-care (01) ==
LOC: MFPLAB 14:15
PROVIDERS: PCP Family Medicine; Referring Provider Family Medicine; Visit Provider Family Medicine
DX: R53.83 Other fatigue (principal)
CPT/HCPCS: 36415; 80048; 84443; 85025

== ENCOUNTER 2022-11-06 14:37 | Outpatient (CLI) | payer MEDICARE, OTHER, SELFPAY ==
[2022-11-06 18:23] LABS: Anion Gap 6 (5-15); BUN 26 mg/dL (7-18); BUN/Creat Ratio 17.7 RATIO (10-20); Calcium,Total 9.8 mg/dL (8.5-10.1); Chloride 102 mmol/L (98-107); Cholesterol 186 mg/dL (200); Creatinine, Serum 1.47 mg/dL (0.55-1.02); EST Glomerular Filtration Rate 37 mL/min (>60); Est Glom Filt Rate - Afr Amer 45 mL/min (>60); Glucose 82 mg/dL (74-106); High Density Lipoprotein 49 mg/dL; Potassium 4.3 mmol/L (3.5-5.1); Sodium Level 140 mmol/L (136-145); Triglycerides 101 mg/dL; Very Low Density Lipoprotein 20 mg/dL (5-40)
== END 2022-11-06 23:59 | disposition home or self-care (01) ==
LOC: MFPLAB 14:38
PROVIDERS: PCP Family Medicine; Referring Provider Family Medicine; Visit Provider Family Medicine
DX: I10 Essential (primary) hypertension (principal)
CPT/HCPCS: 36415; 80048; 80061

== ENCOUNTER → 2023-05-27 | Outpatient (CLI) | payer MEDICARE, OTHER, SELFPAY ==
[2023-05-27 10:53] LABS: ALB/GLOB Ratio 1.2 RATIO (0.9-2.4); AST(SGOT) 15 U/L (15-37); Alanine Aminotransfer ALT/SGPT 30 U/L (13-56); Albumin, Serum 3.9 g/dL (3.2-5.0); Alkaline Phosphatase 68 U/L (45-117); Anion Gap 5 (5-15); BUN 33 mg/dL (7-18); BUN/Creat Ratio 21.2 RATIO (10-20); Calcium,Total 9.4 mg/dL (8.5-10.1); Chloride 106 mmol/L (98-107); Cholesterol 183 mg/dL (200); Creatinine, Serum 1.56 mg/dL (0.55-1.02); EST Glomerular Filtration Rate 35 mL/min (>60); Est Glom Filt Rate - Afr Amer 42 mL/min (>60); Globulin 3.2 g/dL (2.2-4.2); Glucose 98 mg/dL (74-106); High Density Lipoprotein 47 mg/dL; Potassium 4.1 mmol/L (3.5-5.1); Protein, Total 7.1 g/dL (6.4-8.2); Sodium Level 139 mmol/L (136-145); Triglycerides 97 mg/dL; Very Low Density Lipoprotein 19 mg/dL (5-40)
== END | disposition home or self-care (01) ==
LOC: MFPLAB 08:41
PROVIDERS: PCP Family Medicine; Visit Provider Family Medicine
DX: I10 Essential (primary) hypertension (principal)
CPT/HCPCS: 36415; 80053; 80061

== ENCOUNTER → 2023-11-10 | Outpatient (CLI) | payer MEDICARE, OTHER, SELFPAY ==
--- NOTE | 2023-11-10 10:46 | RAD_ITS ---
STUDY: X-RAY - LEFT SHOULDER REASON FOR EXAM: Female, 72 years old. Pain. TECHNIQUE: 4 views of the left shoulder. COMPARISON: None. FINDINGS: There is mild glenohumeral arthrosis. There is mild acromioclavicular arthrosis. Normal acromion. There is a small calcific density adjacent to the greater tuberosity of the humeral head, suggestive of calcific tendinitis of the rotator cuff. Normal humeral head and visualized proximal humerus. The soft tissue structures are unremarkable. There is no demonstrated fracture. Normal visualized pulmonary apex. RAD/Shoulder min 2 Views IMPRESSION: Mild glenohumeral arthrosis and mild acromioclavicular arthrosis. Small calcific density adjacent to the greater tuberosity of the humeral head, suggestive of calcific tendinitis of the rotator cuff. Electronically Signed: Eric Sheridan MD at 11:48 EDT ,
[2023-11-10 13:12] LABS: Anion Gap 4 (5-15); BUN 31 mg/dL (7-18); BUN/Creat Ratio 20.7 RATIO (10-20); Calcium,Total 9.6 mg/dL (8.5-10.1); Chloride 103 mmol/L (98-107); EST Glomerular Filtration Rate 36 mL/min (>60); Est Glom Filt Rate - Afr Amer 44 mL/min (>60); Glucose 95 mg/dL (74-106); Potassium 4.3 mmol/L (3.5-5.1); Sodium Level 136 mmol/L (136-145)
== END | disposition home or self-care (01) ==
PROVIDERS: PCP Family Medicine; Referring Provider Family Medicine; Visit Provider Family Medicine
DX: N28.9 Disorder of kidney and ureter, unspecified (principal); M25.512 Pain in left shoulder
CPT/HCPCS: 36415; 73030; 80048

== ENCOUNTER → 2024-05-20 | Outpatient (CLI) | payer MEDICARE, OTHER, SELFPAY ==
--- NOTE | 2024-05-20 06:25 | MRI_ITS ---
INDICATION: LT SHOULDER PAIN EXAMINATION: MRI - LEFT MR Shoulder W/O Contrast TECHNIQUE: Multiplanar and multisequence MR images of the left shoulder. IV Contrast Dosage and Agent: None. COMPARISON: Left shoulder radiograph November 10, 2023. FINDINGS: BONE: No fracture or abnormal bone marrow signal. ACROMIOCLAVICULAR JOINT: Normal alignment. No significant inferolateral acromial tilt. Moderate acromioclavicular degenerative change with mild osteophyte formation, trace joint fluid, and prominent superior synovial thickening.. SUBACROMIAL-SUBDELTOID SPACE: Small subacromial subdeltoid bursal fluid collection.. GLENOHUMERAL JOINT: Normal alignment. No effusion. Grossly preserved chondral surfaces without subchondral edema. Ill-defined diffuse increased signal within the rotator interval . ROTATOR CUFF: Supraspinatus anterior footplated insertional tear spanning 7 mm anterior posterior with diffuse supraspinatus tendinosis. Infraspinatus, teres minor, subscapularis tendons are intact. No significant intramuscular edema or evidence of fatty replacement. . LABRUM: Mild superior labral degenerative change. No grossly displaced labral on this nonarthrogram exam. BICEPS TENDON: The extra-articular biceps tendon is in the bicipital groove. The intra-articular biceps tendon is normal. OTHER SOFT TISSUES: Unremarkable and spinoglenoid notch and suprascapular notch. Unremarkable axillary recess.. MRI/Upper Ext Joint Only(Routine) IMPRESSION: Supraspinatus anterior footplate rim rent insertional tear with diffuse tendinosis. Mild subacromial subdeltoid bursitis. Increased ill-defined signal within the rotator interval as can be seen with adhesive capsulitis. Correlate with exam. Moderate acromioclavicular osteoarthritis. Electronically Signed: Rafael Vasquez MD at 9:40 EDT ,
== END | disposition home or self-care (01) ==
PROVIDERS: PCP Family Medicine; Referring Provider Family Medicine; Visit Provider Family Medicine
DX: M25.512 Pain in left shoulder (principal)
CPT/HCPCS: 73221

== ENCOUNTER → 2024-06-06 | Outpatient (CLI) | payer MEDICARE, OTHER, SELFPAY ==
--- NOTE | 2024-06-06 09:43 | BI_ITS ---
MAMMOGRAPHY - BILATERAL SCREENING 3-D TOMOSYNTHESIS REASON FOR EXAM: Female, 73 years old. SCREENING PERTINENT HISTORY: No significant family history. TECHNIQUE: 2-D mammograms and 3-D Tomosynthesis of the breast (s) were performed. CAD was performed. COMPARISON: 05/13/2020 FINDINGS: The breast composition is composed of scattered fibroglandular density. Scattered benign calcifications are seen. No dense spiculated masses or suspicious microcalcifications are identified. No architectural distortion is identified. There is no skin thickening or retraction. There has been no significant change since the prior study. BI/SCRN MAMM (CAD)W/GEORGINA BILAT IMPRESSION: No mammographic signs of malignancy. Routine yearly mammograms recommended. ASSESSMENT CATEGORY: BIRADS Category 1: Negative. A letter regarding these results will be sent to the patient by the facility within 30 days. FOLLOW UP RECOMMENDATION: Yearly follow up mammogram recommended. (A) Approximately 10% of breast cancers are not detected by mammography. A normal mammogram should not delay biopsy of a clinically suspicious abnormality. Electronically Signed: Fred Bentley MD at 12:22 EDT ,
--- NOTE | 2024-06-06 09:51 | BD_ITS ---
STUDY: DUAL ENERGY X-RAY ABSORPTIOMETRY / DXA REASON FOR EXAM: Female, 73 years old. [id number] TECHNIQUE: Bone Mineral Density (BMD) measurements of lumbar spine and bilateral hips were obtained. COMPARISON: Comparison is made with prior study dated February 07, 2020. FINDINGS: Lumbar Spine (L1-L4): g/cm2 (0.924) / T-score (-1.1) / Z-score (1.1) Findings are suggestive of osteopenia with a low fracture risk. Left Femur Total: g/cm2 (0.996) / T-score (0.4) / Z-score (2.0) Left Femoral Neck: g/cm2 (0.784) / T-score (-0.6) / Z-score (1.3) Right Femur Total: g/cm2 (1.001) / T-score (0.5) / Z-score (2.1) Right Femoral Neck: g/cm2 (0.845) / T-score (0.0) / Z-score (1.8) The T-Scores on the most recent prior examination were: Lumbar Spine (L1-L4): There has been worsening of bone density since the previous examination. Left Femur Total: which represents an improvement of 2.7%. Right Femur Total: which represents an improvement of 1.9%. BD/Dexa Bone Density Study IMPRESSION: The patient is considered osteopenic as outlined below according to World Ronald Organization (WHO) criteria with a low fracture risk. There has been improvement of bone density since the previous examination. Reference Information: The T-score is the number of standard deviations above or below the standard which is normal for young adults at their peak bone mineral density. The World Health Organization (WHO) interprets the T-scores as follows: Above -1 Normal bone density Between -1 and -2.5 Osteopenia Equal to / or below -2.5 Osteoporosis As a practical clinical guideline, osteopenia may be graded as follows: Mild -1 through -1.5 Moderate -1.6 through -2.0 Severe -2.1 through -2.4 The Z-score is the number of standard deviations above or below age-matched controls. A Z-score of less than -1.5 would be considered abnormal. References: 1. NIH Osteoporosis and Related Bone Diseases www osteo.org 2. International Society for Clinical Densitometry www iscd.org 3. National Osteoporosis Foundation www nof.org Electronically Signed: Tomy Mera MD at 13:48 EDT ,
== END | disposition home or self-care (01) ==
LOC: OPBD 09:42
PROVIDERS: PCP Family Medicine; Referring Provider Registered Nurse; Visit Provider Registered Nurse
DX: Z12.31 Encounter for screening mammogram for malignant neoplasm of breast (principal); Z78.0 Asymptomatic menopausal state
CPT/HCPCS: 77063; 77067; 77080